=== PATIENT | male | born 1985 | race Hispanic/Latino ===

== ENCOUNTER 2019-05-28 15:00 | Day surgery (SDC) | payer SELFPAY ==
[~2019-05-28] VITALS: Ht 172.7 cm; Wt 84.0 kg
[2019-05-28 15:57] LABS: HEMATOCRIT 41.8 % (39.0-50.0); HEMOGLOBIN 14.6 g/dl (14.0-18.0); IMMATURE GRANULOCYTES 0.5 % (0.0-5.0); MEAN CELL VOLUME 95.7 fL CALC (80.0-100.0); MEAN CORPUSCULAR HGB 33.4 pG CALC (26.0-32.0); MEAN CORPUSCULAR HGB CONC 34.9 g/L CALC (32.0-36.0); NEUT# 9.13 thou/uL (1.82-7.42); RED BLOOD COUNT 4.37 mill/uL (4.70-6.10); RED CELL DISTRI WIDTH 11.9 % (11.5-15.5)
[2019-05-28 16:21] LABS: ALBUMIN 5.4 g/dL (3.2-5.0); ALKALINE PHOSPHATASE 141 u/l (38-126); AMYLASE 45 u/l (30-110); ANION GAP 21 (6-22 (CALC)); BILIRUBIN, TOTAL 1.1 mg/dL (0.0-1.4); BUN 5 mg/dL (9-20); BUN/CREATININE RATIO 8 (12-20 (CALC)); CARBON DIOXIDE 23 mmol/l (22-30); CHLORIDE 102 mmol/l (95-108); CREATININE 0.6 mg/dL (0.7-1.3); GFR > 60 ML/MIN (>=60 (CALC)); GFR FOR AFR.AMER. > 60 ML/MIN (>=60 (CALC)); LIPASE 49 u/l (23-300); POTASSIUM 3.7 mmol/l (3.5-5.1); SGOT/AST 116 u/l (17-59); SODIUM 143 mmol/l (137-146); TOTAL PROTEIN 9.8 g/dL (6.3-8.2)
--- NOTE | 2019-05-28 20:20 | NUR ---
PT ARIVED TO THE FLOOR VIA STRETCHER. ALERT. PT ASSISTED FROM STRETCHER TO BED. RESPIRATIONS EVEN AND UNLABORED ON RA. LUNGS SOUNDS CLEAR. PEDAL PULSES STRONG. DRESSING TO ABD CDI. PT ORIENTED TO ROOM AND CALL BELLA SYSTEM. SAFETY PRECAUTIONS IN PLACE. WILL CONTINUE TO MONITOR
[2019-05-28 20:45] VITALS: BP 125/77
[2019-05-28 21:00] VITALS: BP 128/84
[2019-05-28 21:15] VITALS: BP 123/79
[2019-05-28 21:30] VITALS: BP 120/77
[2019-05-28 22:00] VITALS: BP 110/68
--- NOTE | 2019-05-28 22:00 | NUR ---
ASSISTED PT TO RESTROOM AND BACK TO BED, GATE STEADY, RESPIRATIONS EVEN AND UNLABORED ON RA. SAFETY PRECAUTIONS IN PLACE. WILL CONTINUE TO MONITOR.
[2019-05-28 22:47] VITALS: BP 111/71
[2019-05-29 00:10] VITALS: BP 115/70
--- NOTE | 2019-05-29 01:05 | NUR ---
PT RESTING IN BED. RESPIRATIONS EVEN AND UNLABORED ON RA. NO S/S OF DISTRESS AT THIS TIME. SAFETY PRECAUTIONS IN PLACE WILL CONTINUE TO MONITOR.
[2019-05-29 04:43] VITALS: BP 104/66
--- NOTE | 2019-05-29 05:07 | NUR ---
PT RESTING IN BED. NO S/S OF DISTRESS AT THIS TIME. SAFETY PRECAUITONS IN PLACE. WILL CONTINUE TO MONITOR.
[2019-05-29 05:31] LABS: ALBUMIN 4.4 g/dL (3.2-5.0); ALKALINE PHOSPHATASE 112 u/l (38-126); ANION GAP 19 (6-22 (CALC)); BILIRUBIN, TOTAL 1.1 mg/dL (0.0-1.4); BUN 6 mg/dL (9-20); BUN/CREATININE RATIO 12 (12-20 (CALC)); CARBON DIOXIDE 20 mmol/l (22-30); CHLORIDE 103 mmol/l (95-108); CREATININE 0.5 mg/dL (0.7-1.3); GFR > 60 ML/MIN (>=60 (CALC)); GFR FOR AFR.AMER. > 60 ML/MIN (>=60 (CALC)); POTASSIUM 4.1 mmol/l (3.5-5.1); SGOT/AST 76 u/l (17-59); SODIUM 138 mmol/l (137-146)
[2019-05-29 08:22] VITALS: BP 109/56
--- NOTE | 2019-05-29 08:25 | NUR ---
REPORT RECEIVED FROM JAGDISH SÁNCHEZ. TRANSLATION BY NET TRAINER BALJINDER. FAMILY AT BEDSIDE. PT DENIES PAIN AT THIS TIME. REPORTING OF CONCERNS ENCORUAGED. PLAN OF CARE DISCUSSED. PT STATES ANTICIPATION OF DISCHARGE. DSICHARGE PROCESS REVIEWED. CALL LIGHT REVIEWED AND IN REACH.
[2019-05-29 10:52] VITALS: BP 106/54
[2019-05-29] MEDS ORDERED: HYDROCO/APAP1 TA9 PO (10:54)
--- NOTE | 2019-05-29 12:16 | NUR ---
Discharge instructions given. Patient verbalizes understanding of same. Discharged in stable condition via Wheelchair to Home with spouse. All belongings sent with pt.
== END 2019-05-29 12:16 | disposition home or self-care (01) | DRG 355 ==
LOC: ED 15:00 → ED-I 17:26 → ED 17:42 → ORM 17:43 → MS2 21:15 → ORM 05-29 12:16
PROVIDERS: Emergency Medicine; ATTEND Surgery
PROC: 0WQF0ZZ Repair Abdominal Wall, Open Approach (ICD-10-PCS; principal; 2019-05-28)
DX: K42.0 Umbilical hernia with obstruction, without gangrene (principal)
CPT/HCPCS: J2710; Q9967

== ENCOUNTER 2019-05-30 06:22 | Emergency (ER) | payer SELFPAY ==
[~2019-05-30] VITALS: Ht 172.7 cm; Wt 55.0 kg
[~2019-05-30 06:22] MED LIST: HYDROCO/APAP1 TA9 PO
[2019-05-30 07:06] VITALS: BP 126/75
== END 2019-05-30 07:03 | disposition home or self-care (01) | DRG 921 ==
LOC: ED 06:22
DX: L76.32 Postprocedural hematoma of skin and subcutaneous tissue following other procedure (principal); Y83.8 Other surgical procedures as the cause of abnormal reaction of the patient, or of later complication, without mention of misadventure at the time of the procedure

== ENCOUNTER 2021-09-06 10:55 | Emergency (ER) | payer SELFPAY ==
[~2021-09-06] VITALS: Ht 172.7 cm; Wt 70.6 kg
[2021-09-06 11:54] LABS: HEMATOCRIT 43.6 % (39.0-50.0); HEMOGLOBIN 14.7 g/dl (14.0-18.0); IMMATURE GRANULOCYTES 0.1 % (0.0-5.0); MEAN CELL VOLUME 96.9 fL CALC (80.0-100.0); MEAN CORPUSCULAR HGB 32.7 pG CALC (26.0-32.0); MEAN CORPUSCULAR HGB CONC 33.7 g/dL CAL (32.0-36.0); NEUT# 5.09 thou/uL (1.82-7.42); RED BLOOD COUNT 4.5 mill/uL (4.70-6.10); RED CELL DISTRI WIDTH 13.4 % (11.5-15.5)
[2021-09-06 12:05] LABS: ALBUMIN 4.1 g/dL (3.2-5.0); ANION GAP 13 (6-22 (CALC)); BUN 7 mg/dL (9-20); BUN/CREATININE RATIO 17 (12-20 (CALC)); CARBON DIOXIDE 24 mmol/l (22-30); CHLORIDE 100 mmol/l (95-108); CREATININE 0.4 mg/dL (0.7-1.3); GFR > 60 ML/MIN (>=60 (CALC)); GFR FOR AFR.AMER. > 60 ML/MIN (>=60 (CALC)); POTASSIUM 3.8 mmol/l (3.5-5.1); SODIUM 134 mmol/l (137-146); TOTAL PROTEIN 9.2 g/dL (6.3-8.2)
[2021-09-06 12:09] LABS: ALKALINE PHOSPHATASE 222 u/l (38-126); SGOT/AST 170 u/l (17-59)
[2021-09-06] MEDS ORDERED: AMOX/K CLAV875 M1 PO ×2 (12:54→16:34)
[2021-09-06 13:18] VITALS: BP 135/80
== END 2021-09-06 13:24 | disposition home or self-care (01) | DRG 159 ==
LOC: ED 10:55
PROVIDERS: Family Medicine
DX: K05.10 Chronic gingivitis, plaque induced (principal); R55 Syncope and collapse; R74.01 Elevation of levels of liver transaminase levels; E80.6 Other disorders of bilirubin metabolism; E66.9 Obesity, unspecified; Z68.23 Body mass index [BMI] 23.0-23.9, adult; Z72.89 Other problems related to lifestyle

== ENCOUNTER 2021-09-06 21:56 | Emergency (ER) | payer SELFPAY ==
[~2021-09-06] VITALS: Ht 157.5 cm; Wt 73.0 kg
[~2021-09-06 21:56] MED LIST changes: +AMOX/K CLAV875 M1 PO
[2021-09-06 22:47] LABS: HEMOGLOBIN 13.7 g/dl (14.0-18.0); IMMATURE GRANULOCYTES 0.1 % (0.0-5.0); MEAN CELL VOLUME 98.3 fL CALC (80.0-100.0); MEAN CORPUSCULAR HGB 32.9 pG CALC (26.0-32.0); MEAN CORPUSCULAR HGB CONC 33.4 g/dL CAL (32.0-36.0); NEUT# 4.78 thou/uL (1.82-7.42); RED BLOOD COUNT 4.17 mill/uL (4.70-6.10); RED CELL DISTRI WIDTH 13.5 % (11.5-15.5)
[2021-09-06 23:03] LABS: INTERNATIONAL NORMALIZED RATIO 1.4 RATIO (0.7-1.3); PROTHROMBIN TIME 14.7 SECONDS (9.0-12.5)
[2021-09-06 23:18] LABS: ALBUMIN 3.7 g/dL (3.2-5.0); ALKALINE PHOSPHATASE 198 u/l (38-126); ANION GAP 12 (6-22 (CALC)); BILIRUBIN, TOTAL 5.1 mg/dL (0.0-1.4); BUN 11 mg/dL (9-20); BUN/CREATININE RATIO 23 (12-20 (CALC)); CARBON DIOXIDE 23 mmol/l (22-30); CHLORIDE 102 mmol/l (95-108); CREATININE 0.5 mg/dL (0.7-1.3); ETHYL ALCOHOL 0 mg/dl (0-30); GFR > 60 ML/MIN (>=60 (CALC)); GFR FOR AFR.AMER. > 60 ML/MIN (>=60 (CALC)); POTASSIUM 3.5 mmol/l (3.5-5.1); SGOT/AST 146 u/l (17-59); SODIUM 133 mmol/l (137-146); TOTAL PROTEIN 8.4 g/dL (6.3-8.2)
[2021-09-07 00:51] VITALS: BP 131/69
== END 2021-09-07 00:51 | disposition home or self-care (01) | DRG 159 ==
LOC: ED 21:56
PROVIDERS: Emergency Medicine
DX: K05.10 Chronic gingivitis, plaque induced (principal); F10.10 Alcohol abuse, uncomplicated; R55 Syncope and collapse; R74.01 Elevation of levels of liver transaminase levels; E80.6 Other disorders of bilirubin metabolism; E66.9 Obesity, unspecified; Z68.23 Body mass index [BMI] 23.0-23.9, adult; Z72.89 Other problems related to lifestyle

== ENCOUNTER 2021-11-24 07:52 | Emergency (ER) | payer SELFPAY ==
[~2021-11-24] VITALS: Ht 157.5 cm; Wt 71.8 kg
[2021-11-24] VITALS (8 sets, daily range): BP systolic 121–137; BP diastolic 66–77
[2021-11-24 09:47] LABS: IMMATURE GRANULOCYTES 0.3 % (0.0-5.0); MEAN CELL VOLUME 100.4 fL CALC (80.0-100.0); MEAN CORPUSCULAR HGB 32.9 pG CALC (26.0-32.0); MEAN CORPUSCULAR HGB CONC 32.8 g/dL CAL (32.0-36.0); NEUT# 8.01 thou/uL (1.82-7.42); RED BLOOD COUNT 2.34 mill/uL (4.70-6.10); RED CELL DISTRI WIDTH 13.9 % (11.5-15.5)
[2021-11-24 09:50] LABS: HEMATOCRIT 23.5 % (39.0-50.0); HEMOGLOBIN 7.7 g/dl (14.0-18.0)
[2021-11-24 10:08] LABS: ALBUMIN 3.6 g/dL (3.2-5.0); ALKALINE PHOSPHATASE 112 u/l (38-126); AMYLASE 43 u/l (30-110); BUN 18 mg/dL (9-20); BUN/CREATININE RATIO 45 (12-20 (CALC)); CHLORIDE 100 mmol/l (95-108); CREATININE 0.4 mg/dL (0.7-1.3); ETHYL ALCOHOL 0 mg/dl (0-30); GFR > 60 ML/MIN (>=60 (CALC)); GFR FOR AFR.AMER. > 60 ML/MIN (>=60 (CALC)); LIPASE 45 u/l (23-300); POTASSIUM 2.9 mmol/l (3.5-5.1); SGOT/AST 110 u/l (17-59); SODIUM 137 mmol/l (137-146); TOTAL PROTEIN 7.4 g/dL (6.3-8.2)
[2021-11-24 10:09] LABS: ANION GAP 12 (6-22 (CALC)); BILIRUBIN, TOTAL 2.2 mg/dL (0.0-1.4); CARBON DIOXIDE 28 mmol/l (22-30)
== END 2021-11-24 11:00 | disposition short-term general hospital (02) | DRG 379 ==
LOC: ED 07:52
PROVIDERS: Emergency Medicine
DX: K92.2 Gastrointestinal hemorrhage, unspecified (principal); F10.10 Alcohol abuse, uncomplicated
CPT/HCPCS: S0164

== ENCOUNTER 2022-03-07 19:51 | Emergency (ER) | payer SELFPAY ==
[~2022-03-07] VITALS: Ht 157.5 cm; Wt 71.0 kg
[2022-03-07 20:22] VITALS: BP 122/62
== END 2022-03-07 23:40 | disposition home or self-care (01) | DRG 921 ==
LOC: ED 19:51
DX: K91.841 Postprocedural hemorrhage of a digestive system organ or structure following other procedure (principal); Y83.6 Removal of other organ (partial) (total) as the cause of abnormal reaction of the patient, or of later complication, without mention of misadventure at the time of the procedure

== ENCOUNTER 2022-03-13 12:29 | Emergency (ER) | payer SELFPAY ==
[~2022-03-13] VITALS: Ht 157.5 cm; Wt 69.0 kg
[2022-03-13 17:29] LABS: IMMATURE GRANULOCYTES 0.1 % (0.0-5.0); MEAN CORPUSCULAR HGB CONC 33.8 g/dL CAL (32.0-36.0); NEUT# 6.57 thou/uL (1.82-7.42); RED BLOOD COUNT 3.79 mill/uL (4.70-6.10); RED CELL DISTRI WIDTH 16.3 % (11.5-15.5)
[2022-03-13 17:33] LABS: HEMATOCRIT 32.5 % (39.0-50.0); MEAN CELL VOLUME 85.8 fL CALC (80.0-100.0)
[2022-03-13 17:45] LABS: INTERNATIONAL NORMALIZED RATIO 1.3 RATIO (0.7-1.3); PROTHROMBIN TIME 13.8 SECONDS (9.0-12.5)
[2022-03-13] MEDS ORDERED: ULTRAM50 M1 PO (19:32)
[2022-03-13 20:12] VITALS: BP 121/76
== END 2022-03-13 20:24 | disposition home or self-care (01) | DRG 921 ==
LOC: ED 12:29
PROVIDERS: Nurse Practitioner
DX: K91.840 Postprocedural hemorrhage of a digestive system organ or structure following a digestive system procedure (principal); Y83.8 Other surgical procedures as the cause of abnormal reaction of the patient, or of later complication, without mention of misadventure at the time of the procedure

== ENCOUNTER 2022-11-10 07:39 | Emergency (ER) | payer SELFPAY ==
[~2022-11-10] VITALS: Ht 157.5 cm; Wt 68.0 kg
[2022-11-10] VITALS (16 sets, daily range): BP systolic 133–155; BP diastolic 69–96
[~2022-11-10 07:39] MED LIST changes: +ULTRAM50 M1 PO
[2022-11-10 08:48] LABS: BASO% 0.5 % (0-3); EOS% 1.1 % (0-8); IMMATURE GRANULOCYTES 0.3 % (0.0-5.0); MEAN CELL VOLUME 80.9 fL CALC (80.0-100.0); MEAN CORPUSCULAR HGB 25.2 pG CALC (26.0-32.0); MEAN CORPUSCULAR HGB CONC 31.1 g/dL CAL (32.0-36.0); MONO% 10.6 % (2-13); NEUT# 3.7 thou/uL (1.82-7.42); NEUT% 59.5 % (42-76); RED BLOOD COUNT 5.24 mill/uL (4.70-6.10); RED CELL DISTRI WIDTH 16.3 % (11.5-15.5)
[2022-11-10 08:53] LABS: BILIRUBIN, TOTAL 2.5 mg/dL (0.2-1.3); BUN 7 mg/dL (9-20); BUN/CREATININE RATIO 13 (12-20 (CALC)); CHLORIDE 102 mmol/l (95-108); CREATININE 0.5 mg/dL (0.7-1.3); GFR FOR AFR.AMER. > 60 ML/MIN (>=60 (CALC)); GFR OTHER RACES > 60 ML/MIN (>=60 (CALC)); SODIUM 135 mmol/l (137-146)
[2022-11-10 08:54] LABS: ALBUMIN 5.1 g/dL (3.2-5.0); ALKALINE PHOSPHATASE 170 u/l (38-126); ANION GAP 24 (6-22 (CALC)); CARBON DIOXIDE 13 mmol/l (22-30); POTASSIUM 3.6 mmol/l (3.5-5.1); SGOT/AST 212 u/l (17-59)
[2022-11-10 09:24] LABS: TSH, 3RD GENERATION 2.48 uIU/mL (0.47 - 4.68)
[2022-11-10 09:40] LABS: HEMATOCRIT 42.4 % (39.0-50.0); HEMOGLOBIN 13.2 g/dl (14.0-18.0)
[2022-11-10 09:43] LABS: URINE BLOOD DIPSTICK TRACE-INTACT (NEGATIVE); URINE COLOR YELLOW; URINE GLUCOSE - DIPSTICK NEGATIVE (NEGATIVE); URINE KETONE TRACE mg/dL (NEGATIVE); URINE LEUK ESTERASE NEGATIVE (NEGATIVE); URINE PH 7.5 (4.5-8.0); URINE PROTEIN - DIPSTICK 100 mg/dL (NEG-TRACE); URINE SPECIFIC GRAVITY 1.025
[2022-11-10 09:48] LABS: URINE BILIRUBIN - DIPSTICK SMALL (NEGATIVE)
[2022-11-10 09:49] LABS: URINE NITRITE - DIPSTICK NEGATIVE (Negative)
[2022-11-10 09:50] LABS: URINE EPITHELIAL CELLS FEW EPI/hpf (0-FEW); URINE MUCUS MODERATE hpf (NONE-FEW); URINE RBC 0-2 RBC/hpf (0-5)
== END 2022-11-10 14:19 | disposition short-term general hospital (02) | DRG 101 ==
LOC: ED 07:39
PROVIDERS: Family Medicine
DX: G40.909 Epilepsy, unspecified, not intractable, without status epilepticus (principal); W18.30XA Fall on same level, unspecified, initial encounter; F10.10 Alcohol abuse, uncomplicated; S01.552A Open bite of oral cavity, initial encounter; X58.XXXA Exposure to other specified factors, initial encounter
CPT/HCPCS: J2060

== ENCOUNTER 2024-03-13 06:26 | Emergency (ER) | payer SELFPAY ==
[~2024-03-13] VITALS: Ht 157.5 cm; Wt 74.8 kg
[2024-03-13 07:01] VITALS: BP 132/86
[2024-03-13 07:16] VITALS: BP 106/62
[2024-03-13 07:30] VITALS: BP 118/69
[2024-03-13] MEDS ORDERED: LIDOcaine HCl 1% (Local Anesth.) 20 ML VIAL STI STA (07:33)
[2024-03-13] MEDS ORDERED: Diph, Acellular Pertussis, Tet 0.5 ML/VIAL (Tdap) SDV IM ONE (07:35)
[2024-03-13] MEDS ORDERED: POVIDONE IODINE 0.5 OZ/BTL TOP ONE (07:35)
[2024-03-13 07:45] VITALS: BP 122/76
[2024-03-13] MEDS ORDERED: CEPHALEXIN500 M1 PO (07:56)
[2024-03-13 08:00] VITALS: BP 108/72
== END 2024-03-13 08:10 | disposition home or self-care (01) | DRG 605 ==
LOC: ED 06:26
PROC: 0HQLXZZ Repair Left Lower Leg Skin, External Approach (ICD-10-PCS; principal; 2024-03-13)
DX: S81.012A Laceration without foreign body, left knee, initial encounter (principal); X58.XXXA Exposure to other specified factors, initial encounter